=== PATIENT | male | born 1955 | race Caucasian/White ===

== ENCOUNTER 2018-01-22 11:59 | Emergency (ER) | payer MEDICAID ==
[~2018-01-22 11:59] MED LIST: AMIODARONE 150 MG INJ; ATROPINE 1 MG/10 ML SYRINGE; CA CHLORIDE 10% 10 ML SYRINGE; EPINEPHrine 0.1 MG/ML SYG; NA BICARBONATE 8.4% 50 ML SYG
[2018-01-22] MEDS ORDERED: MAGNESIUM SULFATE 1 GM/D5W 100 ML (12:08)
[2018-01-22] MEDS ORDERED: EPINEPHrine 0.1 MG/ML SYG (12:11)
[2018-01-22] MEDS ORDERED: PHENYLephrine 20MG IN 250 ML 250 ML (12:15)
[2018-01-22] MEDS ORDERED: NORepinephrine 8MG/250 ML (PMX 250 ML (12:16)
[2018-01-22] MEDS ORDERED: ATROPINE 1 MG/10 ML SYRINGE IV (12:17)
[2018-01-22] MEDS ORDERED: DOPamine-D5W 1.6 MG/ML 250 ML IV (12:17)
[2018-01-22] MEDS ORDERED: DOPamine-D5W 1.6 MG/ML 250 ML (12:18)
[2018-01-22] MEDS ORDERED: ASPIRIN 300 MG SUPP PR (12:30)
[2018-01-22 12:34] LABS: ADD MAN DIFF? NO
[2018-01-22 12:38] LABS: ABNORMAL IP MESSAGE 1; BASOPHILS % 0.2 % (0.0-2.0); EOSINOPHILS # 0.2 10^3/ul (0.0-0.5); EOSINOPHILS % 1.9 % (0.0-7.0); HEMATOCRIT 34.5 % (42.0-52.0); LYMPHOCYTES % 56.8 % (15.0-51.0); MEAN CORPUSCULAR HEMOGLOBIN 28.6 pg (29.0-33.0); MEAN CORPUSCULAR HGB CONC 31.9 g/dl (32.0-37.0); MEAN CORPUSCULAR VOLUME 89.8 fl (82.0-101.0); MEAN PLATELET VOLUME 10.2 fl (7.4-10.4); MONOCYTE # 0.4 10^3/ul (0.3-0.9); MONOCYTES % 4.3 % (0.0-11.0); NEUTROPHIL # 3.1 10^3/ul (1.6-7.5); NEUTROPHILS % 35.1 % (39.0-77.0); NUCLEATED RED BLOOD CELLS% 0.2 /100WBC (0.0-0.0); PLATELET COUNT 74 10^3/UL (140-415); POSITIVE DIFF @See below; RED BLOOD COUNT 3.84 10^6/ul (4.70-6.10)
[2018-01-22 12:38] LABS: WHITE BLOOD COUNT 8.8 10^3/ul (4.8-10.8)
[2018-01-22 12:57] LABS: INR 1.89; PROTIME 22.1 Sec (11.9-14.9); PT RATIO 1.7
[2018-01-22 13:00] LABS: PARTIAL THROMBOPLASTIN TIME 82.8 Sec (25.0-35.0)
== END 2018-01-22 16:52 | disposition expired ==
LOC: E/R 11:59
DX: I46.9 Cardiac arrest, cause unspecified (principal); I10 Essential (primary) hypertension; R40.2212 Coma scale, best verbal response, none, at arrival to emergency department; R40.2112 Coma scale, eyes open, never, at arrival to emergency department; R40.2312 Coma scale, best motor response, none, at arrival to emergency department; R07.9 Chest pain, unspecified
CPT/HCPCS: 31500; 85025; 85610; 85730; 92950; 93005; 94002; 99291-25